=== PATIENT | female | born 1955 | race Caucasian/White ===

== ENCOUNTER → 2016-08-01 | Outpatient (CLI) | payer MEDICAID | LOC: FIMAGING 15:26 | DX: M25.561 Pain in right knee (principal); M22.41 Chondromalacia patellae, right knee; R93.6 Abnormal findings on diagnostic imaging of limbs ==

== ENCOUNTER 2017-03-18 17:19 | Emergency (ER) | payer MEDICAID ==
[2017-03-18 17:37] VITALS: TEMP 98.1
--- NOTE | 2017-03-18 19:01 | EDPHY ---
H & P Stated Complaint: R LEG PAIN, SENT BY TO RULE OUT DVT HPI/ROS: CHIEF COMPLAINT: Right leg pain HISTORY OF PRESENT ILLNESS: The patient is a 61 y/o female directed to come to the ED by urgent care for right leg pain. She has a history of weakness in the right leg causing falls and recently had nerve testing which was reportedly normal. She has recently started working a desk job and has noticed pain in her leg that is not specified to any location but is worse in the lower leg. The pain keeps her awake at night. No leg swelling, no chest pain, no shortness of breath. No recent trauam. She developed a headache and transient dizziness while trying to get ready for work this morning, prompting her to go to urgent care. She has been taking aspirin for the pain. She is unable to tolerate most pain medications and does not generally take ibuprofen or Tylenol. She has an opiate pain medication at home and uses it only in an extreme situation. REVIEW OF SYSTEMS: A ten point review of systems was performed and is negative with the exception of the items mentioned in the HPI. Past medical history: Right leg weakness Past surgical history: Denies Family history: Non-contributory Social history: Lives in [place], started temporary job. No tobacco or alcohol. General Appearance: Alert. Vital signs reviewed. Blood pressure 160/94. Eyes: Pupils equal and round, no conjunctival injection, no discharge. Anicteric. ENT, Mouth: Mucous membranes are moist, no oropharyngeal erythema or edema. Neck: No lymphadenopathy, supple. Respiratory: Lungs are clear to auscultation; no wheezes, rales, or rhonchi. Cardiovascular: Regular rate and rhythm; no murmur, rub, or gallop. Gastrointestinal: Abdomen is soft and nontender, no masses or organomegaly, bowel sounds normal. Skin: Warm and dry, no rashes on exposed skin, normal color. Back: Tender to palpation over the low back diffusely with pain radiating into the right buttock. Nontender over vertebrae. Extremities: No lower extremity edema, no calf tenderness or swelling. Negative Darnell's on right. Neurological: Alert and oriented. Strength is 4+ over 5 in the right leg with testing of major motor groups, 5/5 in the left leg. Testing of the right leg is painful for her and some of the weakness/asymmetry might be due to pain. She is able to heel walk and toe walk. Her gait is antalgic. Psychiatric: Normal affect. - Personal History Current Tetanus Diphtheria and Acellular Pertussis (TDAP): Unsure - Medical/Surgical History Hx Asthma: Yes Hx Chronic Respiratory Disease: No Hx Diabetes: No Hx Cardiac Disease: No Hx Renal Disease: No Hx Cirrhosis: No Hx Alcoholism: No Hx HIV/AIDS: No Hx Splenectomy or Spleen Trauma: No Other PMH: asthma, fibromylagia, 3X ARM SURGERY, neck and l arm pain, r knee bakers cyst, bursitis r hip, torn lumbar disc l5, cyst buttom of l foot , l finger cyst, cyust onheel of r heel and r foot, cervical neck problems, lobectomy l breast, gallbladder probelms, appendectomy, GERD, swallowing issues , exploraatory vaginal surgery for vaginal discharge,NATE - Social History Smoking Status: Never smoked Constitutional: Initial Vital Signs Temperature (C) 36.7 C 03/18/17 17:35 Heart Rate 71 03/18/17 17:35 Blood Pressure 160/94 H 03/18/17 17:35 O2 Sat (%) 94 03/18/17 17:35 O2 Delivery Mode Room Air Allergies/Adverse Reactions: adhesive Allergy (Verified 03/18/17 17:38) Other-Enter Comments aspirin Allergy (Verified 03/18/17 17:38) Dyspnea loratadine [From Claritin] Allergy (Verified 03/18/17 17:38) Other-Enter Comments omeprazole [From Prilosec] Allergy (Verified 03/18/17 17:38) Other-Enter Comments omeprazole magnesium [From Prilosec] Allergy (Verified 03/18/17 17:38) Other-Enter Comments Sulfa (Sulfonamide Antibiotics) Allergy (Verified 03/18/17 17:38) Unknown tetracycline Allergy (Verified 03/18/17 17:38) Unknown Home Medications: Medication Instructions Recorded NK [No Known Home Meds] 03/18/17 Medical Decision Making ED Course/Re-evaluation: 194: US right leg performed. I spoke with radiology regarding this patient. She does not have a DVT. I do not know what is causing her to have worsening leg pain. She also thinks that her leg weakness might be worsening. She had an MRI scan of her back performed at some point within the year. She does not recall any serious findings on that study. We talked about whether or not this might be a lumbar radiculopathy, which seems likely to me based upon the history and physical. Her nerve conduction studies were apparently normal. She cannot take anti-inflammatory medications and does not usually tolerate Tylenol. She is not requesting and does not want pain medication. I recommended a lidocaine patch. She is willing to try this. I have also recommended close follow-up with her primary care physician and I referred her to a neurologist. Differential Diagnosis: Includes but is not limited to lumbar radiculopathy, piriformis syndrome, DVT, superficial thrombophlebitis, muscle strain. Departure - Departure Disposition: Home, Routine, Self-Care Clinical Impression: Leg pain, right Condition: Good Instructions: Leg Pain (ED) Additional Instructions: Try a lidocaine patch and see if this helps. You can buy this over the counter. I recommend that you follow up with a neurologist. I am referring you to Dr Brown. You should also follow up with your primary care physician. If you notice acute worsening of the leg weakness, worsening of her pain, are unable to control your bowels or your bladder, any new or concerning symptoms-- you should be re-evaluated immediately. Referrals: [facility] [Other] - As per Instructions Jayme Brown, [Medical Doctor] - As per Instructions Report Scribed for: Rose Morales Report Scribed by: Mara Rome Date of Report: 03/18/17 Time of Report: 19:18 Physician Review and Approval Statement: 03/18/17 19:00 Portions of this note were transcribed by the medical donation professional. I, Dr. Rose Morales, personally performed the history, physical exam, and medical decision- making; and confirmed the accuracy of the information in the transcribed note.
[2017-03-18 20:43] VITALS: BP 139/77; PULSE 64; RESP 14; O2SAT 97
== END 2017-03-18 21:39 | disposition home or self-care (01) ==
DX: M79.604 Pain in right leg (principal); J45.909 Unspecified asthma, uncomplicated

== ENCOUNTER → 2017-06-23 | Outpatient (CLI) | payer MEDICAID ==
[~2017-06-23] MED LIST: GADOBUTROL 7.5 ML VIAL IVP ONE; IOPAMIDOL (ISOVUE 370) 100 ML BTL IV ONE; LIDOCAINE 1% 300 MG/30 ML SDV ONE
== END ==
LOC: FIMAGING 10:14
PROVIDERS: ATTEND Orthopaedic Surgery
PROC: 3E0U3KZ Introduction of Other Diagnostic Substance into Joints, Percutaneous Approach (ICD-10-PCS; principal; 2017-06-23)
DX: S73.191A Other sprain of right hip, initial encounter (principal); S76.311A Strain of muscle, fascia and tendon of the posterior muscle group at thigh level, right thigh, initial encounter; M16.11 Unilateral primary osteoarthritis, right hip; M76.01 Gluteal tendinitis, right hip
CPT/HCPCS: A9585; Q9967

== ENCOUNTER → 2017-12-07 | Outpatient (CLI) | payer MEDICAID | LOC: FIMAGING 12:39 | PROVIDERS: ATTEND Internal Medicine Pulmonary Disease | DX: Z03.89 Encounter for observation for other suspected diseases and conditions ruled out (principal) ==